=== PATIENT | male | born 2000 | race Caucasian/White ===

== ENCOUNTER 2020-02-05 21:28 | Emergency (ER) | payer MEDICAID ==
[~2020-02-05] VITALS: Ht 177.8 cm; Wt 75.0 kg
[~2020-02-05 21:28] MED LIST: ALBU18HF2 IH; BECL8.7A3 INH; IBUP-1572 PO; MONT10TA26 PO; PANT40TA4 PR
[2020-02-05] MEDS ORDERED: SULF1TAB49 PO (23:09)
[2020-02-05] MEDS ORDERED: sulfamethoxazole/trimethoprim DS (800/160mg) tablet PO ONE (23:10)
[2020-02-05 23:47] VITALS: BP 116/73
== END 2020-02-05 23:51 | disposition home or self-care (01) ==
LOC: ER 21:28
DX: L08.89 Other specified local infections of the skin and subcutaneous tissue (principal); M79.672 Pain in left foot; J45.909 Unspecified asthma, uncomplicated; K21.9 Gastro-esophageal reflux disease without esophagitis; F17.200 Nicotine dependence, unspecified, uncomplicated; F12.90 Cannabis use, unspecified, uncomplicated; Z90.49 Acquired absence of other specified parts of digestive tract; Z59.0 Homelessness; Z79.2 Long term (current) use of antibiotics; Z79.899 Other long term (current) drug therapy
CPT/HCPCS: 99283